=== PATIENT | male | born 1950 | race Caucasian/White ===

== ENCOUNTER 2024-01-25 11:59 | Emergency (ER) | payer MEDICARE, MEDICAID, SELFPAY ==
--- NOTE | ~2024-01-25 | CT_ITS ---
EXAMINATION: CT ABDOMEN AND PELVIS WITHOUT CONTRAST CLINICAL INFORMATION: Hematuria with history of bladder stone COMPARISON: CT abdomen and pelvis 02/15/18 TECHNIQUE: Multidetector volumetric imaging was performed from the superior aspect of the liver through the pubic symphysis. Sagittal and coronal reformatted images were obtained on the technologist's workstation. This CT examination was performed using dose optimization techniques as appropriate, variously including the following: *Automated exposure control *Adjustment of mA and/or kV according to patient size (this includes techniques or standardized protocols for targeted exams where dose is matched to indication/reason for exam; i.e. extremities or head) *Use of iterative reconstruction technique DLP: 540 mGy-cm FINDINGS: LUNG BASES: Scarring is present at the lung bases. LIVER, GALLBLADDER, AND BILIARY TREE: The liver is normal in size, shape, and attenuation. Innumerable benign hepatic cysts are present. No no single suspicious solid focal hepatic lesion or biliary ductal dilatation is present. The gallbladder is unremarkable with no evidence of radiopaque gallstones, gallbladder wall thickening, or obvious pericholecystic inflammatory changes. PANCREAS: Unremarkable. SPLEEN: Unremarkable. ADRENAL GLANDS: Unremarkable. KIDNEYS AND URETERS: The kidneys are normal in size, shape, and attenuation. No hydronephrosis, hydroureter, or calculi seen. No perinephric stranding. A benign hyperattenuating Bosniak class II 1.5 cm left mid renal renal cyst is noted which requires no additional imaging or follow up. No solid renal masses are seen. BLADDER: Unremarkable. GASTROINTESTINAL TRACT: The small and large bowel are unremarkable. There are colonic diverticula without definite reticulated as. The appendix is unremarkable. ABDOMINAL WALL: No significant hernia is appreciated. LYMPH NODES: No retroperitoneal lymphadenopathy. VASCULAR: Calcific atherosclerotic changes are present in the aorta and iliac vessels. There is no evidence of an abdominal aortic aneurysm. PELVIC VISCERA: If the prostate is present is tiny and barely visible. OSSEOUS STRUCTURES: Mild degenerative changes are present in the spine. No bony destructive lesions CT/CT abdomen pelvis wo IV con IMPRESSION: 1. A cause for the patient's hematuria has not been found. 2. Incidental note made of benign hepatic cysts, benign Bosniak class II left renal cyst which requires no additional imaging or follow up, colonic diverticulosis without diverticulitis and mild degenerative changes in the spine. Fleischner guidelines were followed. Electronically signed by: Eran Giraldo MD 01/25/2024 07:42 PM EDT RP
--- NOTE | 2024-01-25 12:14 | ED_ITS ---
HPI - Male Genitourinary General Chief complaint: Urogenital-Male Stated complaint: Blood in urine Time Seen by Provider: 01/25/24 16:03 History of Present Illness ED Provider: Marilyn CAMPOS Narrative: The patient is a 73-year-old male who has a history of bladder stones. Three days ago he developed gross hematuria that has been somewhat intermittent since then. Yesterday he had some lower back pain that was somewhat worse in the right. No fever, sweats, chills. No nausea or vomiting. Related Data Allergies Allergy/AdvReac Type Severity Reaction Status Date / Time No Known Allergies Allergy Verified 01/25/24 12:19 Review of Systems 2 Review of Systems: Yes all other systems are reviewed and are negative [facility] Social History Social History Smoked in Last 30 Days: No Use of substances other than those prescribed or required for medical reasons: No Advance Directives: No Advance Directives Information Provided: Yes Do you have a plan to hurt others: No Plan Physical Exam 2 Vital Signs: Vital Signs: Last Vital Signs Temp 97.8 F 01/25/24 18:31 Pulse 61 01/25/24 18:31 Resp 18 01/25/24 18:31 BP 121/72 01/25/24 18:31 Pulse Ox 96 01/25/24 18:31 O2 Del Method Room Air 01/25/24 18:31 BMI result Body Mass Index 26.9 Const: Other: The patient is a healthy looking 73-year-old male who was awake and alert and does not appear in acute distress or seem acutely ill. HEENT: Head: Yes normal to inspection Face and sinus: Yes normal facial exam Mouth: Normal oral and palatal mucosa present and moist mucous membranes Eyes: General: appearance normal, both eyes and all related structures Neck: Neck: Yes full ROM Resp: Effort & Inspection: normal respiratory effort Auscultation: clear to auscultation bilaterally Cardio: Rate: regular rate Rhythm: regular rhythm Heart sounds: S1 normal heart sound present and S2 normal heart sound present GI: Other: The abdomen is flat, soft, and not significantly tender. Back/Spine/Pelvis: Other: No definite CVA percussion tenderness Skin: Other: Skin is dry and unremarkable Neuro: Other: The patient is awake, alert, pleasant, cooperative. Speech is clear. Face is symmetrical. Moves extremities normally. He seems neurologically intact. Extrem: Other: No peripheral edema Course Course Course Narrative: This is a Rapid Medical Exam performed in triage by Kami Hammond PA-C. Full HPI, ROS and PE to be performed by primary ED provider. 73 yo M w/pmhx BPH, prostate surgery 5yrs ago presenting to the ED c/o gross hematuria x Wednesday. described as dark red, with assoc low back pain & dizziness. denies taking AC PE: ambulating w/steady gait, nontoxic appearing, VSS, abdomen soft and nontender. No CVAT Plan: labs, UA Medical Decision Making Medical Decision Making MDM Narrative: The patient is a very pleasant 73-year-old male who presents with gross hematuria that began a few days ago. He has also had some low back pain although he does not seem in pain at the moment. The patient's urinalysis shows hematuria but no signs of infection. Labs are unremarkable. A CT scan of the abdomen and pelvis shows no obvious explanation for his hematuria. There was an incidental finding of benign hepatic cysts. The patient looks well and I think he may be discharged to follow up with Urology to discuss the hematuria further and with his PCP to discuss his incidental findings. Lab Data 01/25/24 13:05 01/25/24 13:05 Labs: Lab Results 01/25/24 01/25/24 Range/Units 13:05 15:23 WBC 8.6 (4.8-10.8) X10*3/uL RBC 5.09 (4.60-5.80) X10*6/uL Hgb 15.9 (14.0-18.0) g/dl Hct 45.6 (42.0-52.0) % MCV 89.6 (80.0-98.0) fL MCH 31.2 (27.0-33.0) pg MCHC 34.9 (31.0-36.0) g/dl RDW 12.3 (11.0-16.0) % Plt Count 146 L (160-400) X10*3/uL MPV 11.4 (9.4-12.4) fL Immature Gran % (Auto) 0.2 (0.0-0.4) % Neut % (Auto) 71.4 (45-73) % Lymph % (Auto) 18.8 L (20-40) % [place] % (Auto) 6.0 (2-11) % Eos % (Auto) 2.8 (0-4) % Baso % (Auto) 0.8 (0-2) % Lymph # (Auto) 1.6 (1.2-4.9) X10*3/uL [place] # (Auto) 0.5 (0.1-1.2) X10*3/uL Eos # (Auto) 0.2 (0.0-0.4) X10*3/uL Baso # (Auto) 0.1 (0.0-0.2) X10*3/uL Abs Immat Gran (auto) 0.02 (0.00-0.03) X10*3/uL Absolute Neuts (auto) 6.1 (2.0-8.3) x10*3/uL Absolute Nucleated RBC 0.000 (0.0-0.012) X10*3/uL Nucleated RBC % (auto) 0.0 (0.0-0.2) /100WBC PT 12.0 (10.9-12.4) SEC INR 1.0 (0.9-1.1) Sodium 143 (135-145) mmol/L Potassium 4.1 (3.3-5.1) mmol/L Chloride 108 (96-108) mmol/L Carbon Dioxide 28 (22-29) mmol/L Anion Gap 11 L (12-20) BUN 18 H (9-16) mg/dL Creatinine 1.24 (0.5-1.4) mg/dL Estim Creat Clear Calc 53.9 Estimated GFR 57 Random Glucose 111 (60-115) mg/dL Calcium 9.6 (8.4-10.2) mg/dL Magnesium 2.1 (1.6-2.6) mg/dL Total Bilirubin 0.8 (0.0-1.0) mg/dL Direct Bilirubin 0.2 (0.0-0.5) mg/dL AST 19 (5-37) U/L ALT 19 (0-40) U/L Alkaline Phosphatase 66 (39-117) U/L Total Protein 7.2 (6.5-8.0) g/dL Albumin 3.9 (3.5-5.0) g/dL Urine Color Yellow Urine Appearance Clear Urine pH 5.5 (5.0-9.0) Ur Specific [place] 1.025 (1.005-1.025) Urine Protein 30 (1+) H (Neg-Trace) mg/dL Urine Glucose (UA) Negative (Negative) mg/dL Urine Ketones Trace (Negative) mg/dL Urine Blood Large (3+) H (Negative) Urine Nitrite Negative (Negative) Ur Leukocyte Esterase Negative (Negative) Urine RBC >20 H (0-2) /HPF Urine WBC 0-5 (0-5) /HPF Ur Squamous Epith Cells 0-2 (0-2) /HPF Urine Bacteria None Seen (None Seen) Hyaline Casts 0-2 (0-2) /LPF Discharge Plan Discharge Clinical Impression: Hematuria Patient Disposition: Home, Self-Care Additional Instructions: Your testing in the emergency room today is reassuring. There is no sign of a kidney stone or any other for why you may have had bleeding recently. Perhaps you passed a stone. There is also no sign of a urine infection. I think it would be good for you to follow up with the urology office to make sure they do not feel you should get any additional testing. Your CT scan showed an incidental finding of benign cysts in your liver. I think it would be good for you to follow up with your primary care doctor to discuss this further. Return to the emergency room if worse. Referrals: [facility] [Provider Group] (gross hematuria) Shreyas George MD [Primary Care Provider] - (Hematuria, benign cyst seen incidentally on CT scan) Print Language: Ghanaian
[2024-01-25 12:18] VITALS: BP 142/79; PULSE 83; RESP 19; TEMP 36.6; O2SAT 98; BMI 26.9
[2024-01-25 13:10] LABS: MANUAL DIFF FLAG NO
[2024-01-25 13:12] LABS: Basophils Absolute Auto 0.1 X10*3/uL (0.0-0.2); Basophils Percent Auto 0.8 % (0-2); Eosinophils Absolute Auto 0.2 X10*3/uL (0.0-0.4); Eosinophils Percent Auto 2.8 % (0-4); Hematocrit 45.6 % (42.0-52.0); Hemoglobin 15.9 g/dl (14.0-18.0); Imm Gran Abs Auto 0.02 X10*3/uL (0.00-0.03); Imm Gran Pct Auto 0.2 % (0.0-0.4); Lymphocytes Absolute Auto 1.6 X10*3/uL (1.2-4.9); Lymphocytes Percent Auto 18.8 % (20-40); Mean Corpuscular HGB Conc 34.9 g/dl (31.0-36.0); Mean Corpuscular Hemoglobin 31.2 pg (27.0-33.0); Mean Corpuscular Volume 89.6 fL (80.0-98.0); Mean Platelet Volume 11.4 fL (9.4-12.4); Monocytes Absolute Auto 0.5 X10*3/uL (0.1-1.2); Neutrophils Absolute Auto 6.1 x10*3/uL (2.0-8.3); Neutrophils Percent Auto 71.4 % (45-73); Platelet Count 146 X10*3/uL (160-400); Red Blood Count 5.09 X10*6/uL (4.60-5.80); Red Cell Distribution Width 12.3 % (11.0-16.0); White Blood Count 8.6 X10*3/uL (4.8-10.8)
[2024-01-25 13:30] LABS: Alanine Aminotransferase 19 U/L (0-40); Albumin Level 3.9 g/dL (3.5-5.0); Alkaline Phosphatase 66 U/L (39-117); Anion Gap 11 (12-20); Aspartate Amino Transferase 19 U/L (5-37); Bilirubin Direct 0.2 mg/dL (0.0-0.5); Bilirubin Total 0.8 mg/dL (0.0-1.0); Blood Urea Nitrogen 18 mg/dL (9-16); Calcium 9.6 mg/dL (8.4-10.2); Carbon Dioxide 28 mmol/L (22-29); Chloride 108 mmol/L (96-108); Creatinine Clr Calc Pharmacy 53.9; Estimated Glomerular Filt Rate 57; Glucose Random 111 mg/dL (60-115); Magnesium 2.1 mg/dL (1.6-2.6); Potassium 4.1 mmol/L (3.3-5.1); Sodium 143 mmol/L (135-145); Total Protein 7.2 g/dL (6.5-8.0)
--- NOTE | 2024-01-25 15:23 | PC.NURSE ---
pt reports low left back/flank pain for a few days and hematuria. urine sample collected and sent to lab - medium yellow color
[2024-01-25 15:30] LABS: Appearance Urine Clear; Color Urine Yellow; Glucose Urine UA Negative (Negative); Leukocyte Esterase Urine Negative (Negative); Nitrite Urine Negative (Negative); PH 5.5 (5.0-9.0); Specific Gravity - Urine 1.025 (1.005-1.025); UMIC TRIGGER UACC YES; Urine Blood Large (3+) (Negative); Urine Ketones Trace mg/dL (Negative); Urine Protein 30 (1+) mg/dL (Neg-Trace)
[2024-01-25 16:23] VITALS: BP 131/72; PULSE 57; RESP 16; TEMP 36.6; O2SAT 96
[2024-01-25 16:26] LABS: Bacteria Urine None Seen (None Seen); Hyaline Casts Urine 0-2 /LPF (0-2); RBC Urine >20 /HPF (0-2); Squamous Epithelial Cell Urine 0-2 /HPF (0-2); WBC Urine 0-5 /HPF (0-5)
[2024-01-25 18:31] VITALS: BP 121/72; PULSE 61; RESP 18; TEMP 36.6; O2SAT 96
--- NOTE | 2024-01-25 19:23 | PC.NURSE ---
Assumed care of pt. Pt lying on stretcher, no acute distress at this time.
[2024-01-25 21:08] VITALS: BP 121/72; PULSE 61; RESP 18; TEMP 36.6; O2SAT 96
== END 2024-01-25 21:09 | disposition home or self-care (01) ==
PROVIDERS: Physician Assistant; Emergency Provider Emergency Medicine; PCP Internal Medicine
DX: R31.9 Hematuria, unspecified (principal); R10.2 Pelvic and perineal pain; Z79.899 Other long term (current) drug therapy
CPT/HCPCS: 36415; 74176; 80048; 80076; 81001; 83735; 85025; 85610; 99284

== ENCOUNTER 2024-03-08 11:03 | Outpatient (AMB) | payer MEDICARE, MEDICAID, SELFPAY ==
--- NOTE | 2024-03-08 11:03 | A.OFFVIS_ITS ---
Intake Visit Reasons: hematuria Intake Note: New patient is present to establish care for hematuria Any Urology Medications: None Antibiotic Allergy: None Blood Thinner: None PVR: History of Prostate cancer 5+ years ago Family History: Bladder Cancer? No Prostate Cancer? No Patient Symptoms: Patient states he is experiencing lower back pain, 3 weeks ago saw blood in the urine, went to the ER. He is no longer seeing blood in the urine Customer Leader Required: Yes Allergies No Known Allergies Allergy (Verified 03/08/24 11:09) HPI Comments Details: iSmeon is a pleasant Tanzanian-speaking male. He is a patient of Dr.Esparza- Ornelas. He is seen for the following urologic conditions. - hematuria - prostate cancer Tanzanian translation provided by qualified medical technicians Episode of hematuria Nonsmoker No family history Plan office cystoscopy Prostate cancer - robotic prostatectomy 2017 Check PSA Hematuria Imaging - CT - left renal cyst, small prostate, no identifiable cause for hematuria [facility] Medical History (Updated 03/08/24 @ 11:33 by Kun Sánchze MD) Hematuria Renal cyst, left History of bladder stone Review of Systems Const Denies chills and Denies fever(s) Card Reports no additional complaints and Denies syncope Resp Denies cough GI Denies abdominal pain and Denies heartburn Reports as per HPI and Denies change in libido Neuro Denies syncope Psych Denies change in libido Endo Denies change in libido Physical Exam Const General: cooperative, healthy appearing, comfortable and no acute distress Orientation/consciousness: patient oriented x3 HEENT Face and sinus: Yes normal facial exam Mouth: moist mucous membranes Neck Neck: Yes normal visual inspection, Yes full ROM and Yes trachea midline Chest Chest palpation & inspection: normal inspection of the chest Resp Effort & Inspection: normal respiratory effort, able to speak in complete sentences and no respiratory distress GI Inspection: Yes normal to inspection Back/Spine/Pelvis Cervical Spine: normal cervical lordosis Thoracic/Lumbar Spine: thoracic and lumbar spine normal to inspection Skin General skin exam: no rashes or lesions noted Neuro General: patient oriented x3, gait normal, tone normal and moves all extremities Extrem General: Yes normal to inspection and Yes capillary refill normal Office Procedures Post Void Residual Post Residual Void Post Void Residual (PVR): 51 [id number]-[id number] Void Residual by ultrasound Results AMB Urinalysis, Automated UA Leukoctes 0 Sonny/uL Last Edit by Rajwinder Robb CMA on 03/08/24 12:54 UA Nitrite Negative Last Edit by Rajwinder Robb CMA on 03/08/24 12:54 UA Urobilinogen 0.2 mg/dL Last Edit by Rajwinder Robb CMA on 03/08/24 12:5 4 UA Protein 100 mg/dL Last Edit by Rajwinder Robb, ARON on 03/08/24 12:54 UA pH 5.5 Last Edit by Rajwinder Robb, ARON on 03/08/24 12:54 UA Blood 200 Benjamin/uL Last Edit by Rajwinder Robb, ARON on 03/08/24 12:54 UA Specific [place] 1.030 Last Edit by Rajwinder Robb, ARON on 03/08/24 12: 54 UA Ketone Positive Last Edit by Rajwinder Robb CMA on 03/08/24 12:54 UA Bilirubin 0 mg/dL Last Edit by Rajwinder Robb, ARON on 03/08/24 12:54 UA Glucose 0 mg/dL Last Edit by Rajwinder Robb CMA on 03/08/24 12:54 Results Reviewed Results Reviewed: Laboratory Last Values Urine pH (Auto) 5.5 03/08/24 11:39 Specific [place] (Auto) 1.030 03/08/24 11:39 Urine Protein (Auto) 100 mg/dL 03/08/24 11:39 Glucose (UA)(Auto) 0 mg/dL 03/08/24 11:39 Urine Ketones (Auto) Positive 03/08/24 11:39 Urine Blood (Auto) 200 Benjamin/uL 03/08/24 11:39 Urine Nitrite (Auto) Negative 03/08/24 11:39 Urine Bilirubin (Auto) 0 mg/dL 03/08/24 11:39 Urine Urobilinogen (Auto) 0.2 mg/dL 03/08/24 11:39 Leukocyte Esterase (Auto) 0 Sonny/uL 03/08/24 11:39 Assessment & Plan Assessment & Plan (1) Hematuria: Code(s): R31.9 - Hematuria, unspecified Category: Medical (2) Prostate cancer: Code(s): C61 - Malignant neoplasm of prostate Category: Medical Plan Plan office cystoscopy Orders: Orders AMB Post Void Residual by ultrasound 03/08/24 R31.9 - Hematuria, unspecified AMB Urinalysis Automated 03/08/24 Z13.9 - Encounter for screening, unspecified Prostate Specific Antigen 03/08/24 C61 - Malignant neoplasm of prostate Urine Cytology 03/08/24 R31.9 - Hematuria, unspecified Patient Instructions: Imaging studies, laboratory and physical exam results were discussed and reviewed in detail. No major barriers to patient understanding were identified. An opportunity to ask questions regarding the treatment plan was provided. All questions were answered. The patient expressed understanding and agreement with the above treatment plan. The patient is aware they should contact our office by phone for worsening of their current condition or the appearance of new urologic symptoms. Compliance is encouraged with any medications and followup testing that is ordered. It is a privilege to participate in the urologic care of your patient. If you have any questions or concerns regarding treatment for the above conditions, or other urologic issues, please do not hesitate to contact me. The office telephone contact is [phone]. This note is constructed using voice recognition software. While every effort has been made to ensure accuracy audience development manager errors may have been included. Yours sincerely, Dr Kun Sánchez MD, [facility] - Urology Providers of Expert, Compassionate Care for the Genitourinary System Coding Level of Care Code New Pt Level 4 (60218) Diagnoses Hematuria R31.9 Prostate cancer C61 CPT Codes Post Residual Void - PVR CPT Code: 75847-Pcoz Void Residual by ultrasound ([id number])
== END 2024-03-08 11:34 | disposition home or self-care (01) ==
PROVIDERS: PCP Internal Medicine; Visit Provider Urology
DX: R31.9 Hematuria, unspecified (principal); C61 Malignant neoplasm of prostate
CPT/HCPCS: 99204

== ENCOUNTER 2024-03-08 11:03 | Outpatient (REF) | payer MEDICARE, MEDICAID, SELFPAY ==
[2024-03-08 16:41] LABS: Urine Cytology See Pathology rpt
== END 2024-03-08 11:04 | disposition home or self-care (01) ==
LOC: HO.LAB 11:03
PROVIDERS: PCP Internal Medicine; Visit Provider Urology
DX: R31.9 Hematuria, unspecified (principal); C61 Malignant neoplasm of prostate; Z13.9 Encounter for screening, unspecified
CPT/HCPCS: 51798; 81003; 88112; 99202

== ENCOUNTER 2024-04-21 08:56 | Outpatient (AMB) | payer MEDICARE, MEDICAID, SELFPAY ==
--- NOTE | 2024-04-21 08:58 | A.OFFVIS_ITS ---
Intake Visit Reasons: Cysto/PSA(Needs PSA) Intake Note: Patient is present for Cystoscopy/PSA Urology Medication:NONE Antibiotic Allergy:NONE Blood Thinner:NONE Lot:[id number] Exp:01/30/27 Merchandise Flow Team Leader Required: No Allergies No Known Allergies Allergy (Verified 04/21/24 08:59) HPI Comments Details: Simeon is a pleasant Tajik-speaking male. He is a patient of Dr.Esparza- Ornelas. He is seen for the following urologic conditions. - hematuria - prostate cancer - radiation cystitis Tajik translation provided by qualified back office medical assistant Office cystoscopy Radiation changes at bottom 3rd of bladder Prostate cancer - robotic prostatectomy 2017 Check PSA Had postprocedure radiation Cytology negative high-grade Hematuria Imaging - CT - left renal cyst, small prostate, no identifiable cause for hematuria [facility] Medical History (Updated 04/21/24 @ 14:59 by Kun Sánchez MD) Hematuria Renal cyst, left History of bladder stone Review of Systems Const Denies chills and Denies fever(s) Card Reports no additional complaints and Denies syncope Resp Denies cough GI Denies abdominal pain and Denies heartburn Reports as per HPI and Denies change in libido Neuro Denies syncope Psych Denies change in libido Endo Denies change in libido Physical Exam Const General: cooperative, healthy appearing, comfortable and no acute distress Orientation/consciousness: patient oriented x3 HEENT Face and sinus: Yes normal facial exam Mouth: moist mucous membranes Neck Neck: Yes normal visual inspection, Yes full ROM and Yes trachea midline Chest Chest palpation & inspection: normal inspection of the chest Resp Effort & Inspection: normal respiratory effort, able to speak in complete sentences and no respiratory distress GI Inspection: Yes normal to inspection Back/Spine/Pelvis Cervical Spine: normal cervical lordosis Thoracic/Lumbar Spine: thoracic and lumbar spine normal to inspection Skin General skin exam: no rashes or lesions noted Neuro General: patient oriented x3, gait normal, tone normal and moves all extremities Extrem General: Yes normal to inspection and Yes capillary refill normal Office Procedures Cystoscopy Consent Discussed risk and benefit or proposed procedure with the patient. Information consent for procedure given to the patient. Discussed technical aspects, risks, benefits and alternatives in full. Addressed all of the patient's questions and concerns regarding the procedure. The patient demonstrated knowledge and understanding. They wish to proceed with this procedure. Preparation The patient was prepped in the usual manner. A supervisor composing room was present and in the room. Genitalia was prepped with betadine solution in a sterile manner. Lidocaine Jelly 2% was placed into the urethra and 16Fr flexible Olympus cystoscope was inserted into the meatus after adequate lubrication. Procedure Cystoscopy performed using a disposable Urovue digital 16 Maldivian cystoscope. Meatus uncircumcised Urethra anterior and posterior urethra normal Prostatic Urethra prostate absent Bladder examination with retroflexion of cystoscope Bladder Orifices normal shape and position Bladder Capacity normal Trabeculations grade 1/2 Cellule Formation - Diverticulum Formation - Mucosal Erythema radiation cystitis Bladder Tumor - 15942-Mlruiienjy DISPOSABLE SCOPE URO-G FLEXIBLE SCOPE Procedure code (CPT) selection complete Office Meds lidocaine HCl 2 % mucosal jelly in applicator Performing Provider: Kun Sánchez MD Performing Location: [facility] Administered by: Sujatha Hernández RN on 04/21/24 09:26 Dose Route Admin Location Dispensed Lot Number Expiration Date [facility] Fpga Design Engineer 10 mL intra-urethral 10 mL nitrofurantoin monohydrate/macrocrystals 100 mg capsule Performing Provider: Kun Sánchez MD Performing Location: [facility] Administered by: Sujatha Hernández RN on 04/21/24 09:26 Dose Route Admin Location Dispensed Lot Number Expiration Date [place] Fpga Design Engineer 100 mg PO 1 cap Results AMB Urinalysis, Automated UA Leukoctes 0 Sonny/uL Last Edit by HUMA Escobar on 04/21/24 09:17 UA Nitrite Negative Last Edit by HUMA Escobar on 04/21/24 09:17 UA Urobilinogen 0.2 mg/dL Last Edit by HUMA Escobar on 04/21/24 09:1 7 UA Protein 30 mg/dL Last Edit by HUMA Escobar on 04/21/24 09:17 UA pH 5.5 Last Edit by HUMA Escobar on 04/21/24 09:17 UA Blood 200 Benjamin/uL Last Edit by HUMA Escobar on 04/21/24 09:17 UA Specific [place] 1.030 Last Edit by HUMA Escobar on 04/21/24 09: 17 UA Ketone Negative Last Edit by HUMA Escobar on 04/21/24 09:17 UA Bilirubin 0 mg/dL Last Edit by HMUA Escobar on 04/21/24 09:17 UA Glucose 0 mg/dL Last Edit by HUMA Escobar on 04/21/24 09:17 Results Reviewed Results Reviewed: Laboratory Last Values Urine pH (Auto) 5.5 04/21/24 09:17 Specific [place] (Auto) 1.030 04/21/24 09:17 Urine Protein (Auto) 30 mg/dL 04/21/24 09:17 Glucose (UA)(Auto) 0 mg/dL 04/21/24 09:17 Urine Ketones (Auto) Negative 04/21/24 09:17 Urine Blood (Auto) 200 Benjamin/uL 04/21/24 09:17 Urine Nitrite (Auto) Negative 04/21/24 09:17 Urine Bilirubin (Auto) 0 mg/dL 04/21/24 09:17 Urine Urobilinogen (Auto) 0.2 mg/dL 04/21/24 09:17 Leukocyte Esterase (Auto) 0 Sonny/uL 04/21/24 09:17 Assessment & Plan Assessment & Plan (1) Hematuria: Code(s): R31.9 - Hematuria, unspecified Category: Medical (2) Prostate cancer: Comment: Radical prostatectomy, salvage radiation Code(s): C61 - Malignant neoplasm of prostate Category: Medical Plan Six-month follow-up G Code G2211 Has been applied in accordance with CMS guidelines ( Medicare and Medicaid programs; [place] 2023 Payment Policies ) to convey the inherent complexity in ongoing patient care within the urology clinic. This deliberate utilization aligns with the visits complexity associated with medical care services serving as a focal point for necessary healthcare, addressing the patient's singular serious or complex condition. This judicious use ensure was appropriate reimbursement, especially in the context of managing such conditions within our specialized, longitudinal urologic practice. This patient has a complex and chronic urologic condition that requires longitudinal follow-up. CMS, Medicare and Medicaid programs; [place] 2023 Payment Policies Fed. Reg 88 (24): 32487-76732 (Nov.022022) Orders: Orders AMB Urinalysis Automated Today Z13.9 - Encounter for screening, unspecified AMB Cystoscopy Today C61 - Malignant neoplasm of prostate, R31.9 - Hematuria, unspecified Patient Instructions: Imaging studies, laboratory and physical exam results were discussed and reviewed in detail. No major barriers to patient understanding were identified. An opportunity to ask questions regarding the treatment plan was provided. All questions were answered. The patient expressed understanding and agreement with the above treatment plan. The patient is aware they should contact our office by phone for worsening of their current condition or the appearance of new urologic symptoms. Compliance is encouraged with any medications and followup testing that is ordered. It is a privilege to participate in the urologic care of your patient. If you have any questions or concerns regarding treatment for the above conditions, or other urologic issues, please do not hesitate to contact me. The office telephone contact is [phone]. This note is constructed using voice recognition software. While every effort has been made to ensure accuracy grinder and honer operator automatic errors may have been included. Yours sincerely, Dr Kun Sánchez MD, [facility] - Urology Providers of Expert, Compassionate Care for the Genitourinary System Coding Level of Care Code Est Pt Level 3 (33307) Diagnoses Hematuria R31.9 Prostate cancer C61 CPT Codes Cystoscopy - CPT: 33405-[id number] ([id number])
== END 2024-04-21 09:42 | disposition home or self-care (01) ==
LOC: HO.HUSH 08:56
PROVIDERS: PCP Internal Medicine; Visit Provider Urology
DX: R31.9 Hematuria, unspecified (principal); C61 Malignant neoplasm of prostate; Z13.9 Encounter for screening, unspecified
CPT/HCPCS: 52000; 99213

== ENCOUNTER → 2024-04-21 08:56 | Outpatient (BNVA) | payer MEDICARE, MEDICAID, SELFPAY | PROVIDERS: PCP Internal Medicine; Visit Provider Urology | DX: R31.9 Hematuria, unspecified (principal); C61 Malignant neoplasm of prostate | CPT/HCPCS: 52000; 81003; 99212 ==